=== PATIENT | female | born 1965 | race Caucasian/White ===

== ENCOUNTER → 2016-10-03 | Outpatient (CLI) | payer OTHER ==
[~2016-10-03] MED LIST: ASPIRIN ENTERI325 M1 PO; ATENOLOL50 MG PO; DEPAKOTE PO; DICLOFENAC PO; ELIQUIS2.5 MG PO; FLEXERIL PO; MAGNESIUM400 MG PO; MOBIC15 MG PO; NEURONTIN100 MG PO; NEURONTIN300 MG PO; PERCOCET5/325; PROTONIX PO; TOPIRAMATE100 MG PO; TRIAMTERENE-HC1 EAC1 PO; ULTRAM PO
--- NOTE | ~2016-10-03 | MR164 ---
[facility] A Service of [facility] RADIOLOGY TEXT RESULTS PATIENT: KAYLA VELAZQUEZ LOCATION: [facility] : 69 UNIT #: [id number] AGE: [address]: Calvin Fair MD SEX: F ORDER DR: [id number] [facility] [address] [place], [place] [address] [id number] O MR#: [id number] Acc #: [id number] NAME: KAYLA VELAZQUEZ : 1965 SEX: F STUDY DATE/TIME: 10/03/2016 7:06 UNIT: [facility] ROOM: STUDY DESCRIPTION: MR Shoulder Wo Contrast Lt Attending Physician: Calvin Fair M.D. Referring Physician: Calvin Fair M.D. Ordering Physician: Calvin Fair M.D. Primary Care Physician: Renita Knapp Aprn MRI CENTER REPORT This report is preliminary unless electronic signature is present. EXAM MRI of the left shoulder 10/03/2016 HISTORY Order states left shoulder pain. History sheet states fell 06/18/2016 onto handle of her stove. Decreased range of motion with overhead or posterior movement. No shoulder surgery. Physical therapy x6 increases the pain. Also fell on 03/01/2012 and injured left shoulder at that time. COMPARISON Left shoulder radiographs 06/19/2016, 07/02/2013, and MRI left shoulder 05/26/2012. FINDINGS The AC joint, coracoclavicular ligament complex, and coracoacromial ligament are normal. There is a small complex signal glenohumeral effusion, similar to 05/26/2012 with numerous small filling defects and/or debris in the posterior axillary recess as well as in the anterior interval superior to the biceps anchor and subtly in the subscapularis recess of the glenohumeral joint space. There is also involvement of the biceps tendon sheath. 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 No high-grade glenohumeral chondromalacia is noted to suggest secondary chondromatosis such as due to loose bodies. Primary chondromatosis is favored. There has been development of marked tendinosis and/or longitudinal interstitial tear in the posterior half of the supraspinatus tendon. The interstitial and/or longitudinal partial tear is of similar signal to the glenohumeral joint space abnormality and encompasses at least 50% of the tendon thickness along the articular side. This measures at least 2.2 STS. [facility] A Service of [facility] RADIOLOGY TEXT RESULTS PATIENT: KAYLA VELZAQUEZ LOCATION: [facility] : 69 UNIT #: [id number] AGE: [address]: Calvin Fair MD SEX: F ORDER DR: cm in transverse dimension x 10 mm in AP dimension. There is pin hole full-thickness communication to the subacromial - subdeltoid bursa which demonstrates mild similar signal and minimal fluid. There is unusual longitudinal heterogeneous signal abnormality (of the same characteristics as the glenohumeral joint) along the long axis of the supraspinatus within the muscle belly. This measures at least 5 cm in length. There is minimal insertional infraspinatus tendinosis with enthesopathic change at the greater tuberosity. The infraspinatus and supraspinatus findings have occurred since 05/26/2012. Subscapularis and teres minor tendons are intact. Rotator cuff muscles show no atrophy. Biceps tendon and glenoid labrum are unremarkable. There is no marrow lesion, fracture, or loose body. IMPRESSION 1. Small complex signal glenohumeral effusion with subtle small loose bodies and/or debris with additional involvement of the anterior interval, subscapularis recess, and biceps tendon sheath. 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 2. Development of marked tendinopathy of the supraspinatus tendon with partial undersurface and/or interstitial longitudinal tear measuring 2.2 x 1 cm potentially with a pinhole full-thickness component. Interestingly, the supraspinatus tendon pathology as well as the adjacent signal abnormality in the subacromial - subdeltoid bursa as well as an unusual longitudinal intramuscular signal focus within the supraspinatus muscle are of similar signal to the glenohumeral abnormality. It is unclear if the 2 are related. Synovial chondromatosis can occur in synovial and bursa but the subacromial - subdeltoid bursa is minimally effected. 3. AC joint, biceps, labrum are normal. 4. No fracture or bone contusion. 5. Development of enthesopathic change of the posterior greater tuberosity of the infraspinatus insertion. Infraspinatus tendon is normal. Dictated by... Janneth Rosales M.D. THIS IS AN ELECTRONICALLY VERIFIED REPORT Janneth Rosales M.D. at 10/07/2016 12:42 PM CRUZITO/rita TD: 10/04/2016 13:58 [facility]. [facility] A Service of [facility] RADIOLOGY TEXT RESULTS PATIENT: KAYLA VELAZQUEZ LOCATION: [facility] : 69 UNIT #: [id number] AGE: [address]: Calvin Fair MD SEX: F ORDER DR: PERICO #: [id number] MRI CENTER REPORT Page 1 of 1 COPY
== END | disposition home or self-care (01) ==
LOC: CMRI 06:28
DX: M25.512 Pain in left shoulder (principal); M25.412 Effusion, left shoulder; M75.112 Incomplete rotator cuff tear or rupture of left shoulder, not specified as traumatic; R93.7 Abnormal findings on diagnostic imaging of other parts of musculoskeletal system
CPT/HCPCS: 73221

== ENCOUNTER → 2016-12-04 | Outpatient (CLI) | payer OTHER ==
--- NOTE | ~2016-12-04 | US85 ---
[facility] A Service [facility] RADIOLOGY TEXT RESULTS PATIENT: KAYLA VELAZQUEZ LOCATION: [facility] : 69 UNIT #: [id number] AGE: [address]: Trish Fox MD SEX: F ORDER DR: [id number] [place] [id number] O MR#: [id number] Acc #: [id number] NAME: KAYLA VELAZQUEZ : 1965 SEX: F STUDY DATE/TIME: 12/04/2016 8:05 UNIT: [facility] ROOM: STUDY DESCRIPTION: LE Veins Unilat or Ltd Stdy Attending Physician: Trish Fox M.D. Referring Physician: Trish Fox M.D. Ordering Physician: Trish Fox M.D. Primary Care Physician: Renita Knapp Aprn MEDICAL IMAGING REPORT This report is preliminary unless electronic signature is present. EXAM Unilateral left lower extremity venous Doppler. DATE OF STUDY 12/04/2016 COMPARISON 09/15/2015 HISTORY Previous history of DVT on chronic anticoagulation, exam ordered to reassess need for anticoagulation. No new symptoms. PROCEDURE Linn-scale imaging, color-Doppler flow imaging and Doppler waveform analysis. 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 The remainder of the left lower extremity deep venous system including the below-knee tibial veins, the popliteal vein as well as the common deep and superficial femoral veins show normal color flow, compressibility, and where appropriate, respiratory phasicity and/or augmentation. The superficial saphenous veins remain normal as well. 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 The remainder of the left lower extremity deep system as well as the superficial saphenous veins are normal. No new abnormality. Dictated by... Edu Camarillo M.D. [facility] A Service of [facility] RADIOLOGY TEXT RESULTS PATIENT: KAYLA VELAZQUEZ LOCATION: [facility] : 69 UNIT #: [id number] AGE: [address]: Trish Fox MD SEX: F ORDER DR: THIS IS AN ELECTRONICALLY VERIFIED REPORT Edu Camarillo M.D. at 12/06/2016 5:31 PM TEV/bd TD: 12/04/2016 12:30 JOB #: [id number] MEDICAL IMAGING REPORT Page 1 of 1
== END | disposition home or self-care (01) ==
LOC: SNIV 07:49
DX: I80.10 Phlebitis and thrombophlebitis of unspecified femoral vein (principal); I82.492 Acute embolism and thrombosis of other specified deep vein of left lower extremity
CPT/HCPCS: 93971